=== PATIENT | male | born 1980 | race Caucasian/White ===

== ENCOUNTER 2017-10-01 10:08 | Emergency (ER) | payer BC ==
[~2017-10-01] VITALS: Ht 175.3 cm; Wt 88.4 kg
[~2017-10-01 10:08] MED LIST: CIPRO500 MG PO; FLAGYL500 MG PO; PREVACID15 MG PO
[2017-10-01 11:02] LABS: BASOPHIL (%) 0.4 % (0-1); EOSINOPHIL (%) 5.3 % (0-5); EOSINOPHIL COUNT 0.4 K/uL (0-0.3); HEMATOCRIT 46.5 % (38.0-50.0); HEMOGLOBIN 15.8 G/DL (12.5-16.6); IMMATURE GRANULOCYTE (%) 0.3 % (0.0-0.7); LYMPHOCYTE (%) 32.5 % (15-42); LYMPHOCYTE COUNT 2.3 K/uL (1.0-2.8); MCV 85.5 FL (86-99); MONOCYTE (%) 5.1 % (3-12); MONOCYTE COUNT 0.4 K/uL (0-0.8); NEUTROPHIL (%) 56.4 % (45-76); PLATELET COUNT 311 K/uL (156-360); RBC DIS.WIDTH-CV 12.6 % (11.8-14.6); RBC DIS.WIDTH-SD 38.7 % (39-53); RED BLOOD COUNT 5.44 M/uL (4.00-5.50)
[2017-10-01 11:37] LABS: ALBUMIN 4.3 G/DL (3.2-4.8); CHLORIDE 105 MEQ/L (99-109); POTASSIUM 3.7 MEQ/L (3.7-5.4); SODIUM 138 MEQ/L (136-147); TOTAL BILIRUBIN 1.2 MG/DL (0.0-1.0)
[2017-10-01 11:42] LABS: ALKALINE PHOSPHATASE 99 IU/L (3-129); ALT (GPT) 45 IU/L (3-49); AST (GOT) 21 IU/L (2-34); CREATININE 0.9 MG/DL (0.6-1.3); GFR ESTIMATE (CALCULATED) > 59 mL/min/ (58.99-99999); GLUCOSE 88 mg/dL (70-99); LIPASE 18 U/L (1.0-51.0); TOTAL PROTEIN 7.7 G/DL (6.4-8.3); UREA NITROGEN (BUN) 12 mg/dL (9-23)
[2017-10-01] MEDS ORDERED: CIPRO500 MG PO (12:43)
[2017-10-01] MEDS ORDERED: FLAGYL500 MG PO (12:43)
[2017-10-01 13:08] VITALS: BP 112/76
== END 2017-10-01 12:54 | disposition home or self-care (01) ==
LOC: EME 10:08
PROVIDERS: Emergency Medicine
DX: K57.32 Diverticulitis of large intestine without perforation or abscess without bleeding (principal); K21.9 Gastro-esophageal reflux disease without esophagitis
CPT/HCPCS: 74177; 80053; 81003; 83690; 85025; 99281; 99285; J2270; J2405; J7030